=== PATIENT | male | born 1985 | race Caucasian/White ===

== ENCOUNTER 2016-08-30 08:33 | Day surgery (SDC) | payer OTHER ==
[~2016-08-30] VITALS: Ht 182.9 cm; Wt 89.0 kg
[2016-08-30] VITALS (17 sets, daily range): BP systolic 112–131; BP diastolic 62–81; PULSE 70–100; RESP 14–26; Ht 182.9 cm; Wt 89.0 kg
[2016-08-30] MEDS ORDERED: OMEP40CA6 PO (09:47)
[2016-08-30] MEDS ORDERED: PROP10TA6 PO (09:47)
[2016-08-30 09:53] LABS: BASOPHILS % 0.3 % (0.0-2.0); EOSINOPHILS # 0.1 10^3/ul (0.0-0.5); EOSINOPHILS % 0.8 % (0.0-7.0); HEMATOCRIT 42.9 % (42.0-52.0); HEMOGLOBIN 14.8 g/dl (14.0-18.0); LYMPHOCYTES # 2.2 10^3/ul (0.8-2.9); LYMPHOCYTES % 33.9 % (15.0-51.0); MEAN CORPUSCULAR HEMOGLOBIN 30.4 pg (29.0-33.0); MEAN CORPUSCULAR HGB CONC 34.6 g/dl (32.0-37.0); MEAN CORPUSCULAR VOLUME 87.9 fl (82.0-101.0); MEAN PLATELET VOLUME 8.9 fl (7.4-10.4); MONOCYTE # 0.5 10^3/ul (0.3-0.9); MONOCYTES % 7.8 % (0.0-11.0); NEUTROPHIL # 3.6 10^3/ul (1.6-7.5); NEUTROPHILS % 57.2 % (39.0-77.0); PLATELET COUNT 262 10^3/UL (140-440); RED BLOOD COUNT 4.88 10^6/ul (4.70-6.10); RED CELL DISTRIBUTION WIDTH 12.9 % (11.5-14.5); UNCORRECTED WBC 6.4 10^3/ul (4.8-10.8); WHITE BLOOD COUNT 6.4 10^3/ul (4.8-10.8)
[2016-08-30 09:56] LABS: INR 0.96; PARTIAL THROMBOPLASTIN TIME 30.5 Sec (25.0-35.0); PROTIME 12.8 Sec (12.2-14.2)
[2016-08-30 09:57] LABS: CONDITION 1
[2016-08-30 09:59] LABS: CHOL/HDL RATIO 5.2 RATIO
[2016-08-30 10:04] LABS: CALCIUM 9.2 mg/dl (8.4-10.2); CREATININE 0.74 mg/dl (0.61-1.24); POTASSIUM 3.8 mmol/L (3.5-5.1)
[2016-08-30] MEDS ORDERED: HEPARIN 1000 UNITS/ML 10 ML INJ ONE (10:30)
[2016-08-30] MEDS ORDERED: LIDOCAINE 1% (MDV) 20 ML INJ ONE (10:30)
[2016-08-30] MEDS ORDERED: IODIXANOL LOCM 100 ML BTL ONE (10:30)
[2016-08-30] MEDS ORDERED: VERAPAMIL 5 MG INJ ONE (10:31)
[2016-08-30] MEDS ORDERED: NITROGLYCERIN (IC) 100 MCG/ML INJ ONE (10:31)
[2016-08-30] MEDS ORDERED: MIDAZOLAM 1 MG/ML 2 ML INJ ONE (10:32)
[2016-08-30] MEDS ORDERED: FENTAnyl 50 MCG/ML VIAL ONE (10:33)
[2016-08-30] MEDS ORDERED: SOD CHLORIDE 0.9% 1,000 ML IV SCH (11:53)
[2016-08-30] MEDS ORDERED: AL HYDROX/MG HYDROX/SIMETH 30 ML CUP PO PRN (12:00)
[2016-08-30] MEDS ORDERED: ACETAMINOPHEN 325 MG TAB PO PRN (12:00)
[2016-08-30] MEDS ORDERED: ONDANSETRON 4 MG INJ IV PRN (12:00)
[2016-08-30] MEDS ORDERED: morphine 2 MG INJ IV PRN (12:00)
--- NOTE | 2016-08-30 17:04 | CARRPT ---
DATE OF PROCEDURE: 08/30/2016 TYPE OF PROCEDURE: 1. Left heart catheterization. 2. Coronary angiography. 3. Measurement of left ventricular end diastolic pressure. ATTENDING PHYSICIAN: Anibal Ponce MD INDICATION: Chest pain refractory to medical therapy with positive stress test findings for ischemi a. BRIEF HISTORY: Mr. Rodríguez is a 31-year-old male with a history of hypertension and palpitations who initially presented with complaints of substernal chest pain. The patient was placed on medical the rapy, continued to have chest pain, subsequently had a cardiac stress test revealing positive ischem ia and now being referred and presents today in order to undergo left heart catheterization to asses s for the possibility of significant obstructive coronary artery disease lending to his symptoms of chest pain and subsequent positive stress test findings. PROCEDURE: After informed consent was obtained, the patient was brought to the [facility] cardiac catheterization lab where his right radial area was prepped and draped in usual sarai rile fashion. Lidocaine 2% was infiltrated in the radial area in order to achieve adequate local an esthesia. Using the modified Seldinger technique, the radial was cannulated and a 6-[place] arterial sheath was placed. A JL3.5 catheter was used to cannulate the left main coronary ostium. With con trast injection, multiple views of the left coronary arterial system were obtained. JL3.5 velocity across the aortic valve. Left ventricular end-diastolic pressure was measured and pullback across t he aortic valve to assess for significant gradient in which there was not a significant gradient not ed. The JL3.5 was removed over guidewire and a JR4 was used to cannulate the right coronary arteria l ostium. With contrast injection, multiple views of the right coronary arterial system obtained. JR4 was removed over a guidewire and this subsequently completed the procedure. The patient's sheat h was removed and TR band was applied. There were no noted complications. FINDINGS: 1. Coronary angiography. Left main is short 4.5 mm, no significant stenoses. Circumflex proximall y is a 3.5 mm vessel and has an ostial of 10% to 20% stenosis. The remainder of the circumflex is f ree of significant focal stenoses. It has a very sizable mid branching obtuse marginal, 3 mm with n o significant focal stenoses. Two proximal branching obtuse marginals, each sub 2 mm vessels, with the inferior branch having a 30 to 40% ostial stenosis. LAD proximally is a 3.5 mm vessel and is fr ee of any significant focal stenosis throughout its entirety. Around the apex, there is a proximal to mid branching diagonal 2.5 mm with no significant focal stenoses. The right coronary artery, dom inant vessel, proximally is 3.5 and has no significant focal stenoses throughout its entirety. It g bobby off a small PDA and a 2 mm vessel with no significant focal stenoses and a 2.5 mm posterolatera l branch with no significant focal stenoses. Measurement of left end diastolic pressure is 6 to 7 and no significant gradient across the aortic v alve. Left ventricular end-diastolic pressure of 6 to 7. TOTAL FLUOROSCOPY TIME: 2.7 minutes. TOTAL CONTRAST: 50 mL. IMPRESSION: 1. Essentially normal coronary arteries with very mild nonobstructive coronary artery disease. 2. Normal left heart filling pressures. 3. No significant aortic stenosis by gradient. RECOMMEND 1. At this time, would maximize medical management. 2. Aggressive risk factor reduction. 3. The patient will be readmitted to same day surgery center for post-cath observation and continue d management of the presenting symptoms with probable discharge later this afternoon. 4. Patient is scheduled for followup in our office at which time we will discuss the results of thi s catheterization and ensure the patient has had no post-catheterization complications. Dictated By: ANIBAL TEJADA/KENNY Conf#: [id number] DID#: [id number]
== END 2016-08-30 18:00 | disposition home or self-care (01) ==
LOC: SDS 08:33
PROVIDERS: ATTEND Internal Medicine
DX: I25.10 Atherosclerotic heart disease of native coronary artery without angina pectoris (principal); I10 Essential (primary) hypertension; R94.39 Abnormal result of other cardiovascular function study
CPT/HCPCS: 80048; 80061; 85025; 85610; 85730; 93458; C1769; C1887; J1644; J2250; J3010; Q9967; Z7610